=== PATIENT | male | born 1985 | race Caucasian/White ===

== ENCOUNTER → 2022-10-04 13:29 | Outpatient (CLI) | payer OTHER, SELFPAY ==
--- NOTE | 2022-10-04 13:33 | XR_ITS ---
FINAL REPORT CLINICAL HISTORY: right foot pain COMPARISON: None FINDINGS: RIGHT FOOT 3 views of the right foot were obtained. There is no acute fracture or dislocation. Visualized joint spaces are normally aligned. Soft tissues are unremarkable. IMPRESSION: No acute bony abnormality. Reviewed, Interpreted and Dictated by Leonardo García MD Transcribed by Rosa March Authenticated and . [facility]
[2022-10-04 17:05] LABS: Uric Acid 5.1 mg/dl (3.5-8.5)
== END ==
PROVIDERS: PCP Family Medicine; Visit Provider Family Medicine
DX: M79.671 Pain in right foot (principal); M10.9 Gout, unspecified
CPT/HCPCS: 73630; 84550

== ENCOUNTER 2023-04-22 13:55 | Day surgery (SDC) | payer OTHER, SELFPAY ==
[2023-04-22] VITALS (12 sets, daily range): BP systolic 121–156; BP diastolic 69–100; PULSE 70–81; RESP 16–20; TEMP 36.2–37.2; O2SAT 95–98; BMI 25.5
[2023-04-22 14:22] LABS: Basophils # 0.1 K/mm3 (0-0.2); Basophils % 1.3 % (0.1-2.0); Chloride 102 mmol/L (98-107); Eosinophils # 0.1 K/mm3 (0.0-0.4); Eosinophils % 1.6 % (0.1-12.0); Hematocrit 48.1 % (42.0-52.0); Hemoglobin 16.1 g/dL (14.1-18.0); Lymphocytes # 1.9 K/mm3 (0.7-4.5); Lymphocytes % 21.4 % (10-50); Mean Corpuscular HGB Conc 33.4 g/dL (31.8-35.4); Mean Corpuscular Hemoglobin 31.1 pg (27.0-31.2); Mean Platelet Volume 8.7 fl (7.4-10.4); Monocytes # 0.7 K/mm3 (0.1-1.0); Monocytes % 8.4 % (1.7-9.3); Neutrophils # 5.8 K/mm3 (1.8-7.8); Neutrophils % 67.3 % (37.0-80.0); Platelet Count 244 K/mm3 (142-424); Red Blood Count 5.17 M/mm3 (4.60-6.20); Red Cell Distribution Width 14.3 % (11.5-17.5); Sodium 140 mmol/L (136-145); White Blood Count 8.7 K/mm3 (4.8-10.8)
[2023-04-22 14:23] LABS: Potassium 3.7 mmoL/L (3.5-5.1)
[2023-04-22 14:25] LABS: Alanine Aminotransferase 47 U/L (12-78); Albumin Level 4.5 g/dl (3.5-5.0); Albumin/Globulin Ratio 1.5 (1.1-1.8); Alkaline Phosphatase 100 U/L (38-126); Anion Gap 8.7 mEq/L (5-15); Aspartate Amino Transferase 50 U/L (17-59); Bilirubin,Total 0.8 mg/dl (0.2-1.3); Blood Urea Nitrogen 10 mg/dl (9-20); Carbon Dioxide 33 mmol/L (22.0-30.0); Estimated Glomerular Filt Rate 94 ml/min (>60); GFR (African American) 114 ML/MIN (>60); Globulin 3.1 g/dL (1.3-3.2); Total Protein,Serum 7.6 g/dl (6.3-8.2)
[2023-04-22 14:26] LABS: Calcium 9.4 mg/dl (8.4-10.2); Glucose 87 mg/dl (74-100)
--- NOTE | 2023-04-22 14:52 | HMH.EDGENADL ---
Discharge Plan Disposition Patient Disposition: Home, Self-Care Clinical Impressions Clinical Impression: Irreducible inguinal hernia Discharge ED Provider: Alejandro Rodrigues General Adult HPI <Alejandro Rodrigues MD - Last Filed: 04/22/23 15:15> General Chief complaint: Abdominal Pain Stated complaint: hernia Time Seen by Provider: 04/22/23 14:03 Mode of Arrival: Ambulatory Source of Information: Patient Limitations: No Limitations Description of Symptoms (Recalled from ER Triage Doc. by RN): pt c/o a L inguinal hernia, pt states is has been present two years. The pt reports he always puts it back in place. However, over the last 3d the pt has been unable to and has had more pain that previously. He called Dr. Fall who instructed he come to the ED. pt is tender in his L groin, pain 5/10, and sharp. Related Data Home Medications Medication Instructions Recorded Confirmed ustekinumab 130 mg/26 mL mg IV 10/04/22 04/22/23 intravenous solution (Stelara) Previous Rx's Medication Instructions Recorded hydrocodone 5 mg-acetaminophen 325 1 tab PO Q6H PRN post-op pain #17 04/22/23 mg tablet tabs Allergies Allergy/AdvReac Type Severity Reaction Status Date / Time No Known Allergies Allergy Verified 04/22/23 14:50 PFSH <Alejandro Rodrigues MD - Last Filed: 04/22/23 15:15> PFSH Disclaimer: The information contained in this section may have been updated after the patient was seen, as this information can be updated by other users. Medical History Crohn's disease Surgical History H/O ileostomy Pectus excavatum H/O eye surgery Family History Father Cancer Diabetes Social History Smoking Status: Never smoker alcohol intake: current substance use type: denies use current occupational status: employed Travel in the last 8 weeks: None household members: spouse and children housing: house marital status: number of children: 3 <Alejandro Rodrigues MD - Last Filed: 04/22/23 15:15> ROS Obtained: Yes All systems reviewed & no additional complaints except as documented Physical Exam <Alejandro Rodrigues MD - Last Filed: 04/22/23 15:15> General General appearance: alert and in no apparent distress Head Head exam: atraumatic and normocephalic Eye Eye exam: Present normal appearance, PERRL and EOMI ENT ENT exam: Present mucous membranes moist Neck Neck exam: Present normal inspection, full ROM and trachea midline Respiratory Respiratory exam: Absent respiratory distress, wheezes, stridor, accessory muscle use or prolonged expiratory phase Cardiovascular Cardiovascular exam: Present normal rhythm Abdominal Exam Abdominal exam: Present soft; Absent distention, tenderness, guarding, rebound or rigidity Extremities Exam Extremities exam: Absent edema Neurological Exam Neurological exam: Present alert, oriented X3, CN II-XII intact and normal gait; Absent motor sensory deficit Skin Skin exam: Present warm and dry; Absent diaphoresis or erythema Medical Decision Making <Alejandro Rodrigues MD - Last Filed: 04/22/23 15:15> Medical Records Medical records reviewed: Yes I reviewed the patient's medical records. Jeb Inquiry Pt receiving controlled substance: No Jeb was queried for this patient: No Vital Signs: 04/22/23 14:03 04/22/23 14:05 04/22/23 14:38 Temperature 98.9 F Temperature Source Oral Pulse Rate 76 81 Pulse Rate [Right] 78 Respiratory Rate 16 Blood Pressure 121/69 Blood Pressure [Right Arm] 124/84 Blood Pressure Mean [Right Arm] 97 Blood Pressure Source [Right Arm] Automatic Cuff Blood Pressure Position [Right Arm] Sitting 02 Sat by Pulse Oximetry 98 98 98 04/22/23 18:21 Temperature 98 F Temperature Source Pulse Rate 77 Pulse Rate [Right] Respiratory Rate 18 Blood Pressure 156/94 H Blood Pressure [Right Arm] Blood Pressure Mean [Right Arm] Blood Pressure Source [Right Arm] Blood Pressure Position [Right Arm] 02 Sat by Pulse Oximetry Lab Data Lab Results 04/22/23 14:05: WBC 8.7, RBC 5.17, Hgb 16.1, Hct 48.1, MCV 93.0, MCH 31.1, MCHC 33.4, RDW 14.3, Plt Count 244, MPV 8.7, Neut % (Auto) 67.3, Lymph % (Auto) 21.4, [place] % (Auto) 8.4, Eos % (Auto) 1.6, Baso % (Auto) 1.3, Neut # (Auto) 5.8, Lymph # (Auto) 1.9, [place] # (Auto) 0.7, Eos # (Auto) 0.1, Baso # (Auto) 0.1, Sodium 140, Potassium 3.7, Chloride 102, Carbon Dioxide 33 H, Anion Gap 8.7, BUN 10, Creatinine 0.90, Estimated GFR 94, Est GFR ( Amer) 114, Glucose 87, Calcium 9.4, Total Bilirubin 0.8, AST 50, ALT 47, Alkaline Phosphatase 100, Total Protein 7.6, Albumin 4.5, Globulin 3.1, Albumin/Globulin Ratio 1.5 04/22/23 15:00: Lactate 1.0 04/22/23 18:40: Urine Color Yellow, Urine Appearance Clear, Urine pH 6.0, Ur Specific [place] 1.025, Urine Protein Negative, Urine Glucose (UA) Negative, Urine Ketones Negative, Urine Blood Negative, Urine Nitrate Negative, Urine Bilirubin Negative, Urine Urobilinogen 0.2, Ur Leukocyte Esterase Negative, Urine RBC Occasional, Urine WBC Occasional, Ur Squamous Epith Cells 3-5, Ur Transition Epith Cell 3-5, Calcium Oxalate Crystal 3+, Urine Bacteria Trace 04/22/23 14:05 04/22/23 14:05 Orders (Tests/Meds): ED MEDICATIONS Discontinued Medications Generic Name Dose Route Start Last Admin Trade Name Freq PRN Reason Stop Dose Admin Hydromorphone HCl 0.5 mg 04/22/23 14:14 04/22/23 15:00 Hydromorphone 2mg/Ml Syringe IV 04/22/23 14:15 0.5 mg ONCE ONE Administration Hydromorphone HCl 0.5 mg 04/22/23 14:56 04/22/23 14:59 Hydromorphone 2mg/Ml Syringe IV 04/22/23 14:57 0.5 mg ONCE ONE Administration Cefazolin Sodium 2 gm/ Sodium 100 mls @ 200 mls/hr 04/22/23 18:38 Chloride IV 04/22/23 19:07 PREOP ONE Iopamidol 75 ml 04/22/23 16:00 04/22/23 16:01 Iopamidol-370 (76%);100ml Bottle IV 04/22/23 16:01 75 ml ONCE ONE Administration Ketorolac Tromethamine 15 mg 04/22/23 14:14 04/22/23 15:00 Ketorolac 30mg/Ml Vial IV 04/22/23 14:15 15 mg ONCE ONE Administration Morphine Sulfate 2 mg 04/22/23 20:19 Morphine 2mg/Ml Syringe IV 04/22/23 22:19 Q5MINP PRN Moderate Pain (4-6) Naloxone HCl 0.4 mg 04/22/23 20:19 Naloxone 0.4mg/Ml Vial IV 04/22/23 22:19 Q3MINP PRN Decreased Respirations Ondansetron HCl 4 mg 04/22/23 20:19 Ondansetron 4mg/2ml Vial IV 04/22/23 22:19 Q6HP PRN Nausea Sodium Chloride 10 ml 04/22/23 16:00 04/22/23 16:01 Sodium Chloride 0.9% 10ml Syr (Rad Only) IV 04/22/23 16:01 10 ml ONCE ONE Administration ORDERS Category Date Time Status CT abdomen pelvis w con Stat Cat Scan 04/22/23 15:12 Completed CBC w/Auto Diff [Complete Blood Count Auto Diff] Stat Lab 04/22/23 14:05 Completed CMP [Comprehensive Metabolic Panel] Stat Lab 04/22/23 14:05 Completed Lactic Acid Stat Lab 04/22/23 15:00 Completed Urinalysis (cathed specimen) Routine Lab 04/22/23 18:40 Completed Medical Decision Narrative: 37-year-old male history of inguinal hernia, Crohn's disease status post numerous bowel resections, recent cataract surgery of the right eye presenting with incarcerated hernia. Popped out 3 days prior to this visit. Has been unable to get back in. Has been having bowel movements up until this morning, has not been passing gas since early this morning. It is tender, becoming more firm, not indurated. Still tolerating p.o. intake. Pain is moderate in intensity and does not radiate. istory was obtained via conversation with patient. On arrival, patient hemodynamically stable, alert, oriented x4, appropriate, GCS 15, moving all extremities spontaneously, pupils equal and reactive to light. Full physical exam performed and significant for large left-sided inguinal hernia. Irreducible. Moderately tender, no overlying skin changes, not indurated, bowel gas able to be appreciated as well as bowel contents. Differential includes incarcerated or strangulated inguinal hernia. Patient was given 1 mg Dilaudid, 15 mg Toradol for symptomatic management and correction of underlying abnormalities. Workup independently interpreted and significant for nonactionable CBC or chemistry. Lactate pending. CT abdomen pelvis pending at time of handoff to oncoming physician. <[place] Riojas, DO - Last Filed: 04/23/23 15:37> Vital Signs: 04/22/23 14:03 04/22/23 14:05 04/22/23 14:38 Temperature 98.9 F Temperature Source Oral Pulse Rate 76 81 Pulse Rate [Right] 78 Respiratory Rate 16 Blood Pressure 121/69 Blood Pressure [Right Arm] 124/84 Blood Pressure Mean [Right Arm] 97 Blood Pressure Source [Right Arm] Automatic Cuff Blood Pressure Position [Right Arm] Sitting 02 Sat by Pulse Oximetry 98 98 98 04/22/23 18:21 Temperature 98 F Temperature Source Pulse Rate 77 Pulse Rate [Right] Respiratory Rate 18 Blood Pressure 156/94 H Blood Pressure [Right Arm] Blood Pressure Mean [Right Arm] Blood Pressure Source [Right Arm] Blood Pressure Position [Right Arm] 02 Sat by Pulse Oximetry Lab Data Lab Results 04/22/23 14:05: WBC 8.7, RBC 5.17, Hgb 16.1, Hct 48.1, MCV 93.0, MCH 31.1, MCHC 33.4, RDW 14.3, Plt Count 244, MPV 8.7, Neut % (Auto) 67.3, Lymph % (Auto) 21.4, [place] % (Auto) 8.4, Eos % (Auto) 1.6, Baso % (Auto) 1.3, Neut # (Auto) 5.8, Lymph # (Auto) 1.9, [place] # (Auto) 0.7, Eos # (Auto) 0.1, Baso # (Auto) 0.1, Sodium 140, Potassium 3.7, Chloride 102, Carbon Dioxide 33 H, Anion Gap 8.7, BUN 10, Creatinine 0.90, Estimated GFR 94, Est GFR ( Amer) 114, Glucose 87, Calcium 9.4, Total Bilirubin 0.8, AST 50, ALT 47, Alkaline Phosphatase 100, Total Protein 7.6, Albumin 4.5, Globulin 3.1, Albumin/Globulin Ratio 1.5 04/22/23 15:00: Lactate 1.0 04/22/23 18:40: Urine Color Yellow, Urine Appearance Clear, Urine pH 6.0, Ur Specific [place] 1.025, Urine Protein Negative, Urine Glucose (UA) Negative, Urine Ketones Negative, Urine Blood Negative, Urine Nitrate Negative, Urine Bilirubin Negative, Urine Urobilinogen 0.2, Ur Leukocyte Esterase Negative, Urine RBC Occasional, Urine WBC Occasional, Ur Squamous Epith Cells 3-5, Ur Transition Epith Cell 3-5, Calcium Oxalate Crystal 3+, Urine Bacteria Trace Orders (Tests/Meds): ED MEDICATIONS Discontinued Medications Generic Name Dose Route Start Last Admin Trade Name Freq PRN Reason Stop Dose Admin Hydromorphone HCl 0.5 mg 04/22/23 14:14 04/22/23 15:00 Hydromorphone 2mg/Ml Syringe IV 04/22/23 14:15 0.5 mg ONCE ONE Administration Hydromorphone HCl 0.5 mg 04/22/23 14:56 04/22/23 14:59 Hydromorphone 2mg/Ml Syringe IV 04/22/23 14:57 0.5 mg ONCE ONE Administration Cefazolin Sodium 2 gm/ Sodium 100 mls @ 200 mls/hr 04/22/23 18:38 Chloride IV 04/22/23 19:07 PREOP ONE Iopamidol 75 ml 04/22/23 16:00 04/22/23 16:01 Iopamidol-370 (76%);100ml Bottle IV 04/22/23 16:01 75 ml ONCE ONE Administration Ketorolac Tromethamine 15 mg 04/22/23 14:14 04/22/23 15:00 Ketorolac 30mg/Ml Vial IV 04/22/23 14:15 15 mg ONCE ONE Administration Morphine Sulfate 2 mg 04/22/23 20:19 Morphine 2mg/Ml Syringe IV 04/22/23 22:19 Q5MINP PRN Moderate Pain (4-6) Naloxone HCl 0.4 mg 04/22/23 20:19 Naloxone 0.4mg/Ml Vial IV 04/22/23 22:19 Q3MINP PRN Decreased Respirations Ondansetron HCl 4 mg 04/22/23 20:19 Ondansetron 4mg/2ml Vial IV 04/22/23 22:19 Q6HP PRN Nausea Sodium Chloride 10 ml 04/22/23 16:00 04/22/23 16:01 Sodium Chloride 0.9% 10ml Syr (Rad Only) IV 04/22/23 16:01 10 ml ONCE ONE Administration ORDERS Category Date Time Status CT abdomen pelvis w con Stat Cat Scan 04/22/23 15:12 Completed CBC w/Auto Diff [Complete Blood Count Auto Diff] Stat Lab 04/22/23 14:05 Completed CMP [Comprehensive Metabolic Panel] Stat Lab 04/22/23 14:05 Completed Lactic Acid Stat Lab 04/22/23 15:00 Completed Urinalysis (cathed specimen) Routine Lab 04/22/23 18:40 Completed Medical Decision Narrative: 37-year-old male history of inguinal hernia, Crohn's disease status post numerous bowel resections, recent cataract surgery of the right eye presenting with incarcerated hernia. Popped out 3 days prior to this visit. Has been unable to get back in. Has been having bowel movements up until this morning, has not been passing gas since early this morning. It is tender, becoming more firm, not indurated. Still tolerating p.o. intake. Pain is moderate in intensity and does not radiate. istory was obtained via conversation with patient. On arrival, patient hemodynamically stable, alert, oriented x4, appropriate, GCS 15, moving all extremities spontaneously, pupils equal and reactive to light. Full physical exam performed and significant for large left-sided inguinal hernia. Irreducible. Moderately tender, no overlying skin changes, not indurated, bowel gas able to be appreciated as well as bowel contents. Differential includes incarcerated or strangulated inguinal hernia. Patient was given 1 mg Dilaudid, 15 mg Toradol for symptomatic management and correction of underlying abnormalities. Workup independently interpreted and significant for nonactionable CBC or chemistry. Lactate pending. CT abdomen pelvis pending at time of handoff to oncoming physician. Dr. Riojas: Patient's lactate was normal. CT abdomen and pelvis did show a left femoral hernia with significant edema and inflammation on radiology report. Given this I did consult with general surgery and discussed management. General surgery has evaluated the patient and has plan to take patient to operating room for further management. Patient agreeable to plan. Remained hemodynamically stable and in no acute distress. Critical Care <Alejandro Rodrigues MD - Last Filed: 04/22/23 15:15> Critical Care Time Critical Care Time: No
[2023-04-22] MEDS: HYDROMORPHONE 2MG/ML SYRINGE 0.5 MG IV ×2 (14:59→15:00)
[2023-04-22] MEDS: KETOROLAC 30MG/ML VIAL 15 MG IV (15:00)
--- NOTE | 2023-04-22 15:12 | CT_ITS ---
FINAL REPORT TECHNIQUE: Postcontrast axial images through the abdomen and pelvis were performed. This study was performed with techniques to keep radiation doses as low as reasonably achievable, (ALARA). Individualized dose reduction techniques using automated exposure control or adjustment of mA and/or kV according to the patient's size were employed. CLINICAL HISTORY: inguinal hernia, irreducible FINDINGS: Abdomen: The lung bases are clear. There is chronic deformity of the anterior chest wall. The liver is normal in size and attenuation. There is mild nonspecific gallbladder wall thickening. The spleen is unremarkable. The adrenals are normal. The pancreas is unremarkable. The kidneys enhance appropriately. The aorta is normal in caliber. No free fluid or adenopathy is identified. No findings for mechanical bowel obstruction are identified. Pelvis: The appendix is not seen, likely surgically absent. There is a left femoral hernia containing fat. There is significant edema/inflammation within the fat in the hernia. There is a small umbilical hernia containing fat. The urinary bladder is unremarkable. No free fluid, free air, abscess or adenopathy is identified. IMPRESSION: Left femoral hernia with significant edema/inflammation. Mild nonspecific gallbladder wall thickening. Reviewed, Interpreted and Dictated by Geoffrey Castillo III, MD Transcribed by Yudith Campos Authenticated and [facility]
[2023-04-22] MEDS: SODIUM CHLORIDE 0.9% 10ML SYR (RAD ONLY) 10 ML IV (16:01)
[2023-04-22] MEDS: IOPAMIDOL-370 (76%);100ML BOTTLE 75 ML IV (16:01)
--- NOTE | 2023-04-22 16:06 | PC.NURSE ---
Rounded on pt to see if they had any needs. No needs at this time.
--- NOTE | 2023-04-22 17:59 | PC.NURSE ---
PT IS GETTING CHANGED INTO HOSPITAL GOWN AND NON SKIDS SOCKS
--- NOTE | 2023-04-22 18:10 | PC.NURSE ---
I went over what I could on the presurgical checklist. Pt states he does not need anything at this time. pts has already been contacted with present.
--- NOTE | 2023-04-22 18:25 | EXP.ANES.CKL ---
[facility] Disclaimer: The information contained in this section may have been updated after the patient was seen, as this information can be updated by other users. Medical History Crohn's disease Surgical History H/O ileostomy Pectus excavatum H/O eye surgery Family History Father Cancer Diabetes Social History Smoking Status: Never smoker alcohol intake: current substance use type: denies use current occupational status: employed Travel in the last 8 weeks: None household members: spouse and children housing: house marital status: number of children: 3 [facility] Anesthesia Checklist Patient Identification Patient Identification: Arm Band and Verbal (Name & ) Structural Data Admitted From: Emergency Dept Planned Operative Procedure/s: LT IHR Consent for Planned Operative Procedure(s) Verified: Yes Verified Documents: Surgical Consent and History and Physical NPO Status Verified Time NPO: 09:00 Chart Verification Results Verified: CBC and BMP Additional verifications Patient : No Anesthesia Reactions: No Cardiovascular Assessment Heart Sounds: S1 & S2 Pulse Rhythm: Irregular Peripheral Edema: No Airway Assessment Mallampati Score:: Class I C-Spine Mobility Assessed: Yes (FROM) TMJ Mobility Assessed: Yes Dentition: Good Dentition (Nothing loose per pt.) Neurological Assessment Level of Consciousness: Awake, Alert, Appropriate and Follows Commands Hx Seizures: No Numbness or tingling in extremities: No Anesthesia Plan Anesthesia Risk discussed: Yes Anesthesia Plan: Verified ASA Class: II (E) Anesthesia Type: General
[2023-04-22] MEDS: LIDOCAINE 1% 20ML MDV 20 ML (19:10)
[2023-04-22] MEDS: CEFAZOLIN 1GM VIAL 2 GM (19:11)
--- NOTE | 2023-04-22 19:55 | EXP.OP.NOTE ---
Date of procedure: 04/22/23 Pre-op Diagnosis:: Left femoral hernia with incarcerated fat Post-op Diagnosis:: Same Procedure performed:: Open repair of incarcerated left femoral hernia Surgeon:: Orville Lai MD Anesthesia: FLOYD Estimated blood loss (mL): 15 Operative findings:: Complex left femoral hernia with incarcerated preperitoneal fat Operative note:: After informed consent was obtained the patient was taken to the operating room and placed in the supine position. General anesthesia was induced and his lower abdomen and groin/scrotum were prepped and draped in a sterile fashion. After infiltration with local anesthetic an oblique left groin incision was made. Dissection to the margin of the external aponeurosis was completed with a combination of sharp dissection and electrocautery. Overlying the external aponeurosis and proceeding in a cephalad direction the incarcerated contents were carefully elevated. No obvious bowel was noted. This was consistent with findings per CT scan. The neck of the hernia was slightly opened. Incarcerated preperitoneal fat was then returned to the abdominal cavity. A 6.4 cm Ventralex mesh was then secured in position with interrupted Ethibond. The overlying tissue was closed with 0 Ethibond in an interrupted fashion. The wound was thoroughly irrigated. A rent in the external aponeurosis was reapproximated with running Vicryl suture. Nayely's fascia was reapproximated with running Vicryl suture. Skin was then closed with 3-0 Monocryl STRATAFIX in a running subcuticular manner. Dressings were applied and patient was transferred to recovery in stable condition after extubation. Condition: stable Disposition: PACU Specimens:: None Complications:: No immediate
--- NOTE | 2023-04-22 20:11 | EXP.ANES.I ---
[facility] Anesthesia Record Part I Anesthesia Record I Intake, IV Amount: 500 Hydration: Adequate Estimated blood loss (mL): 25 Urine output (mL): 400 Blood Products used (#): none Blood Pressure: 156/100 SaO2: 96 Pulse Rate: 71 Airway Patency: Patent Respiratory Rate: 20 Temperature: 97.1 F Patient is:: Awake (Talking) and Stable Stable to PACU at:: 20:10
[2023-04-23 07:25] LABS: Microscopic,Cath URINE MICROSCOPIC (MICROSCOPIC)
[2023-04-23 07:36] LABS: Appearance,Urine/Cath CLEAR (Clear); Bilirubin,Cath Negative (Negative); Blood, Urine/Cath Negative (Negative); Color,Urine/Cath YELLOW (Yellow); Glucose,Urine/Cath (UA) Negative (Negative); Ketones,Urine/Cath Negative (Negative); Leukocyte Esterase,Cath Negative (Negative); Nitrate,Cath Negative (Negative); Protein,Urine/Cath Negative (Negative); Specific Gravity, Urine/Cath 1.025 (1.005-1.030); Urobilinogen,Cath 0.2 EU/dl (0.2)
[2023-04-23 07:57] LABS: Bacteria,Urine/Cath TRACE /lpf; CA Oxalate Crystals,Ur/Cath 3+ /lpf; Mucus,Urine/Cath Trace /lpf; RBC,Urine/Cath Occasional # /hpf (0-3); WBC,Urine/Cath Occasional #/hpf (0-3)
--- NOTE | 2023-04-23 14:01 | P.PNANES_ITS ---
[facility] Anesthesia Record Part II Anesthesia Record Part II Discharge Time: 20:35 Destination: Surgical Day Care (OP Surgery) PACU nurse assessment reviewed?: Yes Patient Condition:: Good Anesthesia Complications:: None Swallowing reflex intact?: Yes Airway Patency: Patent Cyanosis?: No Blood Pressure: 138/90 SaO2: 95 Respiratory Rate: 16 Pulse Rate: 71 Temperature: 98.1 F Mental Status: Alert & Oriented Pain level:: 0 Nausea and/or vomitting:: None Intake, IV Amount: 0 Hydration: Adequate
[2023-04-23 14:02] VITALS: BP 138/90; PULSE 71; RESP 16; TEMP 36.7; O2SAT 95
== END 2023-04-22 21:06 | disposition home or self-care (01) ==
LOC: ER 18:23 → OR 19:11
PROVIDERS: Emergency Provider Emergency Medicine; PCP Family Medicine; Visit Provider Surgery
PROC: (CPT 49553; principal; 2023-04-22 18:00)
DX: K41.30 Unilateral femoral hernia, with obstruction, without gangrene, not specified as recurrent (principal)
CPT/HCPCS: 49553; 74177; 80053; 81001; 83605; 85025; 96374; J3490; C1781; J2405; Q9967

== ENCOUNTER 2023-04-25 09:02 | Outpatient (CLI) | payer OTHER, SELFPAY ==
[2023-04-25 09:17] VITALS: BP 137/85; PULSE 75; RESP 18; O2SAT 96
[2023-04-25] MEDS: KETOROLAC 30MG/ML VIAL 15 MG IM (09:17)
== END 2023-04-25 09:35 | disposition home or self-care (01) ==
LOC: INF 09:03
PROVIDERS: PCP Family Medicine; Visit Provider Surgery
DX: K41.30 Unilateral femoral hernia, with obstruction, without gangrene, not specified as recurrent (principal); G89.18 Other acute postprocedural pain
CPT/HCPCS: 96372

== ENCOUNTER 2024-06-07 13:08 | Outpatient (CLI) | payer OTHER, SELFPAY | END 2024-06-07 23:59 | disposition home or self-care (01) | LOC: LAB.DROPOF 06-08 10:36 | PROVIDERS: PCP Nurse Practitioner Family; Visit Provider Nurse Practitioner Family | DX: J02.9 Acute pharyngitis, unspecified (principal) | CPT/HCPCS: 87070 ==